=== PATIENT | female | born 1950 | race Two or more races ===

== ENCOUNTER 2023-07-20 06:32 | Emergency (ER) | payer MEDICARE, OTHER ==
[~2023-07-20] VITALS: Ht 160 cm; Wt 52.2 kg
[2023-07-20] MEDS ORDERED: HYDROCODONE/APAP 5/325MG TABLET ONE (06:46)
[2023-07-20] MEDS: HYDROCODONE/APAP 5/325MG TABLET PO ONE (06:48)
[2023-07-20 10:24] VITALS: BP 121/87; TEMP 97.8; O2SAT 100
== END 2023-07-20 10:49 | disposition hospice, home (50) ==
LOC: ER 06:34
DX: M50.322 Other cervical disc degeneration at C5-C6 level (principal); M51.36 Other intervertebral disc degeneration, lumbar region; M48.061 Spinal stenosis, lumbar region without neurogenic claudication; M51.34 Other intervertebral disc degeneration, thoracic region; W01.0XXA Fall on same level from slipping, tripping and stumbling without subsequent striking against object, initial encounter; Y93.89 Activity, other specified; Y92.89 Other specified places as the place of occurrence of the external cause; Y99.8 Other external cause status
CPT/HCPCS: 70450-TC; 72125-TC; 72128-TC; 72131-TC